=== PATIENT | female | born 1995 | race Caucasian/White ===

== ENCOUNTER 2017-04-09 15:17 | Inpatient (IN) | END 2017-04-11 11:00 | disposition home or self-care (01) | DRG 782 ==

== ENCOUNTER 2017-04-13 10:11 | Outpatient (CLI) | END 2017-04-13 12:35 | disposition home or self-care (01) ==

== ENCOUNTER 2017-04-16 08:03 | Outpatient (CLI) | END 2017-04-16 09:15 | disposition home or self-care (01) ==

== ENCOUNTER 2017-04-18 19:14 | Outpatient (CLI) | END 2017-04-18 22:55 | disposition home or self-care (01) ==

== ENCOUNTER 2017-04-24 12:10 | Inpatient (IN) | END 2017-04-27 18:00 | disposition home or self-care (01) | DRG 775 ==